=== PATIENT | female | born 1965 | race Caucasian/White ===

== ENCOUNTER → 2020-07-09 09:03 | Outpatient (CLI) | payer OTHER, SELFPAY ==
--- NOTE | 2020-07-09 09:35 | DI.MG.S_ITS ---
Patient Name: EFREN BARRIENTOS date: 1965 Sex: F Attending Physician: Indications: Date: 07/09/2020 09:11 At the request of: SEVERINO GALLEGOS Procedure: MM special view LT UNILATERAL LEFT DIGITAL DIAGNOSTIC MAMMOGRAM 3D/2D WITH ADDITIONAL VIEWS: 07/09/2020 CLINICAL: Additional evaluation requested from prior study. Comparison is made to exams dated: 05/28/2020 mammogram, 01/24/2019 mammogram, and 01/05/2017 mammogram - [facility]. The tissue of left breast is heterogeneously dense. This may lower the sensitivity of mammography. There is a 0.4 cm oval asymmetry with an obscured and indistinct margin in the left breast middle depth lateral region seen on the craniocaudal view only. No other significant masses or calcifications are seen in the breast. IMPRESSION: INCOMPLETE: NEEDS ADDITIONAL IMAGING EVALUATION The 0.4 cm oval asymmetry in the left breast is indeterminate. A targeted ultrasound is recommended and will immediately follow. This exam was interpreted at Station ID: [id number]. NOTE: For mammograms, a report in lay terms will be sent to the patient. Approximately 15% of breast malignancies will not be visualized mammographically. In the management of a palpable breast mass, a negative mammogram must not discourage biopsy of a clinically suspicious lesion. Electronically Signed By: Chavez Barnnon M.D. slc/:07/09/2020 09:52:38 Continued Report - Page 2 of 2 Patient Name: EFREN BARRIENTOS date: 1965 Sex: F Attending Physician: Indications: Date: 07/09/2020 09:11 At the request of: SEVERINO GALLEGOS Procedure: MM special view LT
--- NOTE | 2020-07-09 10:59 | DI.US.S_ITS ---
Patient Name: EFREN BARRIENTOS date: 1965 Sex: F Attending Physician: Indications: Date: 07/09/2020 11:15 At the request of: SEVERINO GALLEGOS Procedure: US breast LT limited LIMITED ULTRASOUND OF LEFT BREAST: 07/09/2020 CLINICAL: Patient returns today to evaluate a focal asymmetry in the left breast. Comparison is made to exams dated: 07/09/2020 mammogram - [facility], 05/28/2020 mammogram, 01/24/2019 mammogram, and 01/05/2017 mammogram - [facility]. Color flow and real-time ultrasound of the left breast were performed. Gonzalez scale images of the real-time examination were reviewed. There is a 0.3 cm x 0.3 cm x 0.3 cm round cyst in the left breast at 2 o'clock middle depth 4 cm from the nipple. This round cyst is hypoechoic with posterior acoustic enhancement. This correlates with mammography findings. Color flow imaging demonstrates that there is no vascularity present. IMPRESSION: PROBABLY BENIGN The 0.3 cm round cyst in the left breast is consistent with a complicated cyst and is probably benign. A follow-up mammogram and an ultrasound in 6 months is recommended to demonstrate stability. Exam findings conveyed to the patient. This exam was interpreted at Station ID: [id number]. Electronically Signed By: Chavez Brannon M.D. slc/:07/09/2020 11:35:05 letter sent: Followup Recommended Ultrasound BI-RADS: 3 Probably benign
== END ==
PROVIDERS: PCP Family Medicine; Referring Provider Family Medicine; Visit Provider Family Medicine
DX: R92.8 Other abnormal and inconclusive findings on diagnostic imaging of breast (principal); N60.02 Solitary cyst of left breast
CPT/HCPCS: 76642; 77065; G0279

== ENCOUNTER → 2021-02-28 08:56 | Outpatient (CLI) | payer OTHER, SELFPAY ==
--- NOTE | 2021-02-28 | DI.US.S_ITS ---
ULTRASOUND OF LEFT BREAST AND AXILLA: 02/28/2021 CLINICAL: 6 month follow-up of cysts. Comparison is made to exams dated: 02/28/2021 mammogram, 07/09/2020 ultrasound, 07/09/2020 mammogram - [facility], 05/28/2020 mammogram, 01/24/2019 mammogram, and 01/05/2017 mammogram - [facility]. Color flow and real-time ultrasound of the left breast axilla were performed. Gonzalez scale images of the real-time examination were reviewed. There is a new 1 cm x 0.5 cm x 1 cm oval mass in the left breast at 1 o'clock posterior depth 5 cm from the nipple. This oval mass is hypoechoic. This was not definitively seen on the prior mammograms. Color flow imaging demonstrates that there is no vascularity present. The previously described 0.3 cm x 0.3 cm x 0.3 cm round cyst in the left breast at 2 o'clock middle depth 4 cm from the nipple is no longer seen. This correlates with mammography findings of not definitively being able to see it on today's mammogram. Color flow imaging demonstrates that there is no vascularity present. No significant abnormalities were seen sonographically in the left axilla. IMPRESSION: SUSPICIOUS OF MALIGNANCY The new 1 cm x 0.5 cm x 1 cm oval mass in the left breast at 1 o'clock posterior depth resembles a fibroadenoma and is at a low suspicion for malignancy. An ultrasound guided biopsy is recommended. Previously described cyst in the left breast 2 o'clock has resolved and is consistent with a benign process. Findings and recommendations were discussed with the patient during today's examination by Dr. Hernandez. This exam was interpreted at Station ID: [id number]. Electronically Signed By: Mauri Nielsen M.D. aty/:02/28/2021 10:51:47 letter sent: Biopsy Required Ultrasound BI-RADS: 4a Low suspicion for malignancy
--- NOTE | 2021-02-28 | DI.MG.S_ITS ---
BILATERAL DIGITAL DIAGNOSTIC MAMMOGRAM 3D/2D: 02/28/2021 CLINICAL: Short term follow up of the left breast, due for bilateral imaging. Comparison is made to exams dated: 07/09/2020 mammogram - [facility], 05/28/2020 mammogram, 01/24/2019 mammogram - [facility], and 07/09/2020 ultrasound - [facility]. The tissue of both breasts is heterogeneously dense. This may lower the sensitivity of mammography. The previously described 0.4 cm oval asymmetry with an obscured and indistinct margin in the left breast middle depth lateral region seen on the craniocaudal view only is much less conspicuous and smaller in size. It is not definitively visualized today. No other significant masses, calcifications, or other findings are seen in either breast. IMPRESSION: INCOMPLETE: NEEDS ADDITIONAL IMAGING EVALUATION The 0.4 cm oval asymmetry in the left breast appears much less conspicuous and smaller in size. It is not definitively seen on today's evaluation and remains indeterminate. An ultrasound is recommended for further evaluation and is scheduled to immediately follow this examination. This exam was interpreted at Station ID: [id number]. NOTE: For mammograms, a report in lay terms will be sent to the patient. Approximately 15% of breast malignancies will not be visualized mammographically. In the management of a palpable breast mass, a negative mammogram must not discourage biopsy of a clinically suspicious lesion. Electronically Signed By: Mauri Nielsen M.D. aty/:02/28/2021 10:48:01 ACR BI-RADS Category 0: Incomplete [id number]
== END ==
PROVIDERS: PCP Family Medicine; Referring Provider Family Medicine; Visit Provider Family Medicine
DX: R92.8 Other abnormal and inconclusive findings on diagnostic imaging of breast (principal); N63.21 Unspecified lump in the left breast, upper outer quadrant; N60.02 Solitary cyst of left breast
CPT/HCPCS: 76642; 77066; G0279

== ENCOUNTER → 2021-03-26 12:56 | Outpatient (CLI) | payer OTHER, SELFPAY ==
--- NOTE | 2021-03-26 | PATH_ITS ---
[facility] Accession Number: [id number] . 01 Material submitted: . breast - LEFT BREAST MASS 1:00 5CMFN . 01 Diagnosis: A. Left Breast Mass, 1 o'clock, 5 cm from the Nipple: Fibrocystic change including microcystic duct dilatation, focal pseudoangiomatous hyperplasia, adenosis, columnar cell change/columnar cell hyperplasia, and stromal fibrosis/hyalinization. Microcalcifications are present. Negative for atypia, carcinoma in situ, and malignancy. . COMMENT: Deeper levels are examined. Clinical and radiographic correlation is necessary. [facility] 03/31/2021 1901 Local . 01 Comment: Dr. Morales reviewed this case and concurs with the diagnosis. . 01 Electronically signed: Skip Deutsch MD, Pathologist NPI- [id number] . 01 Gross description: . Received one formalin-filled container, labeled with the patient's name and designated left breast mass 1 o'clock, 5 cm FN. The specimen is received with a plastic filter in container, sample loose in container and consists of multiple fragments of yellow-cerna tissue which range in size from less than 0.1 cm to 1.2 x 0.2 x 0.2 cm. The specimen is filtered, wrapped, and entirely submitted in one cassette. Possible collection date and time per requisition: 03/26/21 at 1359. Total fixation time: Approximately 14 hours. ([id number]) /Liv 03/27/2021 0225 Local . 01 Microscopic: . . . 01 Pathologist provided ICD-10: R92.8, N63.20, N60.19 . 01 CPT . 558634 Performed at: [address] [facility] [address] [place] [address] [address], [place], [place] [id number] MD Zackery Joyce MD Phone: [phone]
--- NOTE | 2021-03-26 | DI.US.S_ITS ---
ULTRASOUND GUIDED BIOPSY LEFT BREAST USING VACUUM DEVICE WITH MARKING DEVICE INSERTED AND POST DIGITAL MAMMOGRAPHIC IMAGIN03/26/2021 CLINICAL: Left breast mass. PATIENT CONSENT: Risks (minor bleeding, infection, vasovagal reaction and repeat procedure), benefits and alternatives were explained to the patient and written informed consent was obtained. Correlation is made to exams dated: 02/28/2021 ultrasound, 02/28/2021 mammogram, 07/09/2020 ultrasound, 07/09/2020 mammogram - [facility], 05/28/2020 mammogram, and 01/24/2019 mammogram - [facility]. An ultrasound guided biopsy using real-time ultrasound was performed for the 1 cm x 1 cm x 0.5 cm circumscribed oval mass located in the left breast at 1 o'clock posterior depth 5 cm from the nipple. This was described on the previous mammography and ultrasound reports. The skin was prepped in the usual manner. Local anesthetic was administered to the access site. A skin jazz was made in the breast. The abnormality was approached from the lateral aspect. A 13 gauge biopsy needle was placed adjacent to the abnormality under ultrasound guidance. Once the needle was documented to be in the correct location, four cores were obtained using the Mammotome biopsy system. A Celero clip was inserted into the biopsy cavity. A skin adhesive and a sterile dressing were applied to the access site. Post procedure digital mammographic imaging demonstrates the location device at the targeted area. The specimens were sent to the laboratory for pathological analysis. IMPRESSION: ULTRASOUND GUIDED BIOPSY BENIGN Ultrasound guided biopsy of the 1 cm x 1 cm x 0.5 cm mass in the left breast at 1 o'clock posterior depth 5 cm from the nipple was successful with no apparent post procedure complications. Pathology indicates Fibrocystic change including microcystic duct dilatation, focal pseudoangiomatous hyperplasia, adenosis, columnar cell change/columnar cell hyperplasia, and stromal fibrosis/hyalinization. Microcalcifications are present. Negative for atypia, carcinoma in situ, and malignancy. Pathology results are concordant with imaging findings. Return to annual mammogram screening schedule is recommended. This exam was interpreted at Station ID: [id number]. Chavez Brannon M.D. [facility]/:04/01/2021 13:54:32
--- NOTE | 2021-03-26 | DI.MG.S_ITS ---
UNILATERAL LEFT DIGITAL DIAGNOSTIC MAMMOGRAM POST-EXCISIONAL BIOPSY: 03/26/2021 CLINICAL: Abnormal Mammogram. Comparison is made to exams dated: 02/28/2021 mammogram, 07/09/2020 mammogram - [facility], 05/28/2020 mammogram, 01/24/2019 mammogram - [facility], and 02/28/2021 ultrasound - [facility]. The tissue of left breast is heterogeneously dense. This may lower the sensitivity of mammography. There is a marker clip in the appropriate position in the left breast at 1 o'clock posterior depth is at the biopsy site. IMPRESSION: POST PROCEDURE MAMMOGRAM FOR MARKER PLACEMENT There was a successful marker clip placement in the left breast posterior depth. This exam was interpreted at Station ID: [id number]. Electronically Signed By: Chavez Brannon M.D. slc/:03/26/2021 14:13:54 ACR BI-RADS Category Post-procedure mammogram for marker placement
== END ==
PROVIDERS: PCP Family Medicine; Referring Provider Family Medicine; Visit Provider Family Medicine
DX: R92.8 Other abnormal and inconclusive findings on diagnostic imaging of breast (principal)
CPT/HCPCS: 19083; 77065